=== PATIENT | male | born 1960 | race Caucasian/White ===

== ENCOUNTER → 2024-01-07 | Outpatient (CLI) | payer MEDICARE ==
--- NOTE | 2024-01-12 16:49 | CT ---
EXAMINATION TYPE: CT chest w con CT DLP: 366.40 mGycm, Automated exposure control for dose reduction was used. DATE OF EXAM: 01/07/2024 11:50 AM COMPARISON: Chest CT 12/16/2014. 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 Sagittal and coronal reformats were created for review. Contrast used:100 mL of Isovue 300 with IV Contrast (None if empty) Oral contrast used: (None if empty) FINDINGS: LUNGS/ PLEURA: A 5 mm nodule is seen in the right middle lobe. The lung parenchyma appears unremark able. AIRWAY: Patent and unremarkable. HEART: Size within normal limits. MEDIASTINUM: No gross evidence of adenopathy. VASCULATURE: No aortic aneurysm. MUSCULOSKELETAL: No acute osseous abnormalities SOFT TISSUES/LYMPH NODES: Unremarkable. LOWER NECK: No significant findings. UPPER ABDOMEN: No significant findings. IMPRESSION: A 6 mm solid nodule is seen in the right middle lobe. Exam is otherwise negative. Fleischner Society guidelines as follows: Solitary solid nodule 6-8 mm (100-250 mm3) * low-risk patients: CT at 6-12 months, then consider CT at 18-24 months * high-risk patients:? CT at 6-12 months, then CT at 18-24 months Follow up recommendations for incidental pulmonary nodules, if there are any, are per Fleischner?s [place] [employer] [employer] or [place] [employer]. https://radiopaedia.org/articles/wzttiwepss-[email or web address]?lang=us
== END | disposition home or self-care (01) ==
LOC: RADCTMAIN 10:16
PROVIDERS: ATTEND Internal Medicine Hematology & Oncology
DX: C44.42 Squamous cell carcinoma of skin of scalp and neck (principal); R91.1 Solitary pulmonary nodule; Z71.3 Dietary counseling and surveillance; Z71.89 Other specified counseling
CPT/HCPCS: 71260; Q9967

== ENCOUNTER → 2024-07-12 | Outpatient (CLI) | payer MEDICARE ==
--- NOTE | 2024-07-12 12:28 | CT ---
EXAMINATION TYPE: CT chest w con CT DLP: 568 mGycm, Automated exposure control for dose reduction was used. DATE OF EXAM: 07/12/2024 11:26 AM COMPARISON: CT chest 01/07/2024, 12/16/2014 CLINICAL INDICATION:Male, 64 years old with history of R91.1 nodule; PHH, nodule TECHNIQUE: Multiple axial images were obtained through the chest following the administration of 100 cc of Isovue 300. . Coronal and sagittal reformats reviewed. FINDINGS: LUNGS/ PLEURA: No pleural effusion, pneumothorax, or focal consolidation. Stable anterior right midl peg 5.2 mm groundglass nodule (series 4, image 37). No new or enlarging pulmonary nodules. May have b een present on prior CT in 2014. AIRWAY: Patent and unremarkable.. HEART: Size within normal limits. No pericardial effusion. Gviu-ke-wtsotcjz coronary artery calcifica tions. MEDIASTINUM: No evidence of adenopathy. VASCULATURE: No aortic aneurysm. MUSCULOSKELETAL: No acute osseous abnormalities. Multilevel anterior osteophytosis of the mid to lowe r thoracic spine. Prominent Schmorl's noted involving the superior endplate of the L1 vertebral body. Mild retrolisthesis of L1 on L2. SOFT TISSUES/LYMPH NODES: Mild bilateral gynecomastia. LOWER NECK: No significant findings. UPPER ABDOMEN: No significant findings. IMPRESSION: Stable 5.2 mm groundglass pulmonary nodule within the anterior right midlung. No new or enlarging pul monary nodules. According to Fleischner criteria, no follow-up is recommended. [facility], , 07/12/2024 12:25 PM
== END | disposition home or self-care (01) ==
LOC: RADCTMAIN 11:01
PROVIDERS: ATTEND Internal Medicine Hematology & Oncology
DX: C44.42 Squamous cell carcinoma of skin of scalp and neck (principal); R91.1 Solitary pulmonary nodule
CPT/HCPCS: 71260; Q9967